=== PATIENT | female | born 1965 | race Caucasian/White ===

== ENCOUNTER 2020-07-16 04:11 | Emergency (ER) | payer BC, OTHER ==
[~2020-07-16] VITALS: Ht 162.6 cm; Wt 66.0 kg
[~2020-07-16 04:11] MED LIST: BIOT1CAP3 PO; BUPR150T15 PO; BUSP5TAB PO; CARV3.1230 PO; CARV6.2541 PO; CLON0.5T4 PO; CLON1TAB11 PO; ESTR1TAB15 PO; FROV2.5T4 PO; GABA-586 PO; HYDR12.58 PO; LISI40TA6 PO; MELA1TAB11 PO; METH10TA2 PO; MORP60TA37 PO; OXYC30TA3 PO; RIZA10TA6 PO; SIMV20TA18 PO; TIZA4CAP PO; TRAZ-120 PO
[2020-07-16 04:14] VITALS: BP 175/138
--- NOTE | 2020-07-16 04:17 | PHYS DOC ---
Past History Past Medical History: Anxiety, Arthritis, Hypertension, Other Past Surgical History: Other Smoking: Non-smoker Alcohol Use: None Drug Use: None General Adult HPI: HPI: "My right ear hurting really bad tonight.. I took one of my old Augmentin .. to see if that would help.." .." My throat is sore... ".. " but mainly this ear is the problem..." Patient is a 55 year old female who presents with above hx and complaints sore throat and right ear pain. Patient denies any barotrauma. Patient localizes the pain at right ear. Does have erythema right ear canal. There is fluid behind right TM. Movement of the right ear causes pain. Has been mildly congested recently. Patient did take an Augmentin 875 earlier in hopes to help with the pain. Patient denies any history of cardiac disorder. No history of dental pain and currently has false teeth. No temporal artery tenderness. No history of trauma. No specific ill contacts. Patient normally follows Dr. Mary elias. Patient denies any history of cardiac disorder. Denies any shortness of breath. Denies any chest pain or discomfort. Denies any dysrhythmia. Review of Systems: Review of Systems: Constitutional: Denies fever or chills Eyes: Denies change in visual acuity HENT: Patient complains of right ear pain and sore throat Respiratory: Denies cough or shortness of breath Cardiovascular: Denies chest pain or edema GI: Denies abdominal pain, nausea, vomiting, bloody stools or diarrhea : Denies dysuria Musculoskeletal: Denies back pain or joint pain Integument: Denies rash Neurologic: Denies headache, focal weakness or sensory changes Endocrine: Denies polyuria or polydipsia Lymphatic: Denies swollen glands Psychiatric: Denies depression or anxiety Family History: Family History: Noncontributory to presentation Current Medications: Current Meds: See nursing for home meds Allergies: Allergies: Allergies Coded Allergies Type Severity Reaction Last Updated Verified No Known Drug Allergies 12/17/13 No Physical Exam: PE: Constitutional: Reports marked acute distress, non-toxic appearance. [] HENT: Normocephalic, atraumatic,Ltt. external ears normal, , some erythema right ear canal. There is fluid behind right TM. Oropharynx moist, mild injection of pharynx. No oral exudates, nose swollen turbinates and clear rhinorrhea. . Temporal artery nontender. Dentures. Eyes: PERRLA, EOMI, conjunctiva normal, no discharge. [] Neck: Normal range of motion, no tenderness, supple, no stridor. Complains of pain at angle right jaw. Cardiovascular:Heart rate regular rhythm, no murmur [] Lungs & Thorax: Bilateral breath sounds equal apex on auscultation [] Abdomen: Bowel sounds normal, soft, no tenderness, no masses, no pulsatile masses. [] Skin: Warm, dry, no erythema, no rash. [] Back: No tenderness, no CVA tenderness. [] Extremities: No tenderness, no cyanosis, no clubbing, ROM intact, no edema. No cording. Neurologic: Alert and oriented X 3, normal motor function, normal sensory function, no focal deficits noted. [] Psychologic: Affect anxious, judgement normal, mood normal. [] EKG: EKG: [] Radiology/Procedures: Radiology/Procedures: [] Heart Score: C/O Chest Pain: N/A Risk Factors: Risk Factors: DM, Current or recent (<one month) smoker, HTN, HLP, family history of CAD, obesity. Risk Scores: Score 0 - 3: 2.5% MACE over next 6 weeks - Discharge Home Score 4 - 6: 20.3% MACE over next 6 weeks - Admit for Clinical Observation Score 7 - 10: 72.7% MACE over next 6 weeks - Early Invasive Strategies Course & Med Decision Making: Course & Med Decision Making Pertinent Labs and Imaging studies reviewed. (See chart for details) Take Tylenol and ibuprofen for pain. Use Cortisporin eardrops 2 drops to right ear 4 times a day. Continue your Augmentin 875 twice a day. Take Benadryl 50 mg up 4 x day may help clear fluid behind TM. Follow-up with Dr. Connell. Return if any concerns. Impression: 1. Right external canal erythema- external otitis 2. Right otitis 3. Pharyngitis- suspect viral [] Hiwot Disclaimer: Hiwot Disclaimer: This electronic medical record was generated, in whole or in part, using a voice recognition dictation system. Departure Departure: Referrals: NIGEL GARCIA MD (PCP) Hiwot Disclaimer This chart was dictated in whole or in part using Voice Recognition software in a busy, high-work load, and often noisy Emergency Department environment. It may contain unintended and wholly unrecognized errors or omissions. Dragon Disclaimer This chart was dictated in whole or in part using Voice Recognition software in a busy, high-work load, and often noisy Emergency Department environment. It may contain unintended and wholly unrecognized errors or omissions. Dragon Disclaimer This chart was dictated in whole or in part using Voice Recognition software in a busy, high-work load, and often noisy Emergency Department environment. It may contain unintended and wholly unrecognized errors or omissions. Dragon Disclaimer This chart was dictated in whole or in part using Voice Recognition software in a busy, high-work load, and often noisy Emergency Department environment. It may contain unintended and wholly unrecognized errors or omissions. JACY GANDHI MD Jul 16, 2020 04:17
[2020-07-16] MEDS ORDERED: predniSONE 10 MG TABLET PO ONE (04:30)
[2020-07-16] MEDS ORDERED: HYDROcodon/IBUPROFEN 7.5/200MG 1 TAB TABLET PO ONE (04:30)
[2020-07-16] MEDS ORDERED: NEOMYCIN/POLYMYXIN/HC OTIC SUSPENSION 10ML BOTTLE. AD ONE (04:30)
== END 2020-07-16 04:45 | disposition home or self-care (01) ==
LOC: ER 04:11
DX: H60.91 Unspecified otitis externa, right ear (principal); J02.9 Acute pharyngitis, unspecified; M19.90 Unspecified osteoarthritis, unspecified site; F41.9 Anxiety disorder, unspecified; I10 Essential (primary) hypertension
CPT/HCPCS: 87070; 87880; 99284; J7512

== ENCOUNTER → 2020-08-11 | Outpatient (CLI) | payer BC, OTHER ==
[2020-07-16 04:14] VITALS: BP 175/138
[2020-08-11 11:20] LABS: BASO # 0.1 x10^3/uL (0.0-0.2); BASO % 1 % (0-3); EOS # 0.1 x10^3/uL (0.0-0.7); EOS % 2 % (0-3); HEMATOCRIT 46.2 % (36.0-47.0); HEMOGLOBIN 15.6 g/dL (12.0-15.5); LYMPH # 1.4 x10^3/uL (1.0-4.8); LYMPH % 16 % (24-48); MEAN CORPUSCULAR HEMOGLOBIN 29 pg (25-35); MEAN CORPUSCULAR HGB CONC 34 g/dL (31-37); MEAN CORPUSCULAR VOLUME 86 fL (79-100); MONO # 0.6 x10^3/uL (0.0-1.1); MONO % 7 % (0-9); NEUT # 6.6 x10^3uL (1.8-7.7); NEUT % 75 % (31-73); PLATELET COUNT 222 x10^3/uL (140-400); RED CELL DISTRIBUTION WIDTH 13.9 % (11.5-14.5); WHITE BLOOD COUNT 8.8 x10^3/uL (4.0-11.0)
[2020-08-11 11:31] LABS: CALCIUM 9.2 mg/dL (8.5-10.1); CREATININE 0.9 mg/dL (0.6-1.0); GFR 64.5; POTASSIUM 3.6 mmol/L (3.5-5.1)
[2020-08-12 00:15] LABS: HEMOGLOBIN A1C 5.6 % (4.8-5.6)
== END ==
LOC: LAB 10:41
PROVIDERS: ATTEND Family Medicine
DX: L03.211 Cellulitis of face (principal); R73.9 Hyperglycemia, unspecified
CPT/HCPCS: 36415; 80048; 83036; 83605; 85025; 87040